=== PATIENT | female | born 1985 | race Caucasian/White ===

== ENCOUNTER 2017-06-30 07:20 | Inpatient (IN) | payer BC ==
[~2017-06-30 07:20] MED LIST: Buffered Lidocaine 0.9% SYRIN* 5 ML/SYR SYRINGE INTRADERM ONE; Sodium Citrate/Citric Acid* 15 ML UDC PO ONE; ceFOXitin 2 GM IVPREMIX* 2 GM/50 ML BAG IVPB SCH
[2017-06-30] MEDS ORDERED: Famotidine IV* 10 MG/ML 2 ML (20 mg) ONE (08:41)
[2017-06-30] MEDS ORDERED: Ondansetron INJ* 2 MG/ML VIAL ONE (08:41)
[2017-06-30] MEDS ORDERED: OXYTOCIN* 10 UNITS/ML 1 ML VIAL ONE (08:41)
[2017-06-30] MEDS ORDERED: Morphine PF AMP (0.5MG/ML)* 5 MG/10 ML AMP ONE (08:42)
[2017-06-30] MEDS ORDERED: fentaNYL* 50 MCG/ML 2 ML VIAL (100 MCG VIAL) IV PRN (08:51)
[2017-06-30] MEDS ORDERED: fentaNYL* 50 MCG/ML 2 ML VIAL (100 MCG VIAL) ONE ×2 (09:35→09:59)
[2017-06-30] MEDS ORDERED: Sodium Bicarbonate 8.4% SYR* 10 ML SYRINGE ONE (09:35)
[2017-06-30] MEDS ORDERED: KETAMINE HCL* 50 MG/ML 10 ML VIAL ONE (09:36)
[2017-06-30] MEDS ORDERED: Carboprost Tromethamine* 250 MCG INJ ONE (09:49)
[2017-06-30] MEDS ORDERED: Lidocaine 2% PF * 5 ML VIAL ONE (10:12)
[2017-06-30] MEDS ORDERED: Ketorolac INJ* 30 MG/ML 1 ML VIAL ONE (10:12)
[2017-06-30] MEDS ORDERED: Propofol* 10 MG/ML 20 ML BTL IV PUSH ONE (10:12)
[2017-06-30] MEDS ORDERED: diPHENhydraMINE IV* 50 MG/ML 1 ml VIAL (BENADRYL) ONE (10:12)
[2017-06-30] MEDS ORDERED: Witch Hazel PAD* JAR TOPICAL PRN (10:24)
[2017-06-30] MEDS ORDERED: Acetaminophen TAB* 325 MG PO PRN (10:24)
[2017-06-30] MEDS ORDERED: Zolpidem TAB* 5 MG PO PRN (10:24)
[2017-06-30] MEDS ORDERED: Dibucaine 1% 28.35 GM TUBE PR PRN (10:24)
[2017-06-30] MEDS ORDERED: Glycerin ADULT SUPP PR PRN (10:24)
[2017-06-30] MEDS ORDERED: Misoprostol TAB* 200 MCG PR ONE (10:29)
[2017-06-30] MEDS ORDERED: Carboprost Tromethamine* 250 MCG INJ IM ONE (10:29)
[2017-06-30] MEDS ORDERED: Scopolamine 1.5 mg* PATCH TRANSDERM PRN (10:34)
[2017-06-30] MEDS ORDERED: Scopolamine PATCH Remove* 1 NOTE MISC PATCH OFF PRN (10:34)
[2017-06-30] MEDS ORDERED: PROCHLORPERAZINE INJ 5 MG/ML 2 ML VIAL IV PRN (10:34)
[2017-06-30] MEDS ORDERED: Naloxone* 0.4 MG/ML 1 ML VIAL IV PRN (10:34)
[2017-06-30] MEDS ORDERED: oxyCODONE/Acetamin 5/325 MG* TAB PO PRN ×2 (10:34)
[2017-06-30] MEDS ORDERED: oxyCODONE TAB* 5 MG TAB PO PRN (10:34)
[2017-06-30] MEDS ORDERED: DiMENhydriNATE IV* 50 MG/ML VIAL IV PUSH PRN (10:34)
[2017-06-30] MEDS ORDERED: Ondansetron INJ* 2 MG/ML VIAL IV PRN (10:34)
[2017-06-30] MEDS ORDERED: Nalbuphine* 20 MG/ML 1 ML VIAL IV PRN ×2 (10:34)
[2017-06-30] MEDS ORDERED: Oxytocin in LR* 20 UNITS/1,000 ML BAG IVPB SCH (11:00)
[2017-06-30] MEDS: Simethicone TAB* 80 MG TAB.CHEW PO SCH ×3 (12:50→21:24)
[2017-06-30] MEDS: Acetaminophen TAB* 325 MG PO SCH ×3 (12:54→21:24)
[2017-06-30] MEDS: diPHENhydraMINE IV* 50 MG/ML 1 ml VIAL (BENADRYL) IV PRN ×2 (13:46→17:16)
[2017-06-30] MEDS: Docusate CAP* 100 MG PO SCH ×2 (14:35→21:24)
[2017-06-30] MEDS: Ketorolac INJ* 30 MG/ML 1 ML VIAL IV SCH ×2 (16:01→22:30)
[2017-07-01] MEDS: Acetaminophen TAB* 325 MG PO SCH (01:58)
--- NOTE | 2017-07-01 03:30 | OP ---
DATE OF OPERATION: 06/30/17 - ROOM #[id number] DATE OF : 83 SURGEON: Chase Antonio MD COMMERCIAL DECORATOR: Dinora Bourne CM ANESTHESIOLOGIST: Dr. Glaser ANESTHESIA: Spinal with sedation. PRE-OP DIAGNOSIS: Twins, vertex breech at term, desires elective section. POST-OP DIAGNOSES: Twins, vertex breech at term, desires elective section plus placenta accreta. OPERATIVE PROCEDURE: Low transverse section. ESTIMATED BLOOD LOSS: 800 cc. SPECIMEN: Includes placenta A which showed signs of accreta in the uterus, and placenta B which had a normal appearance. FINDINGS: At the time of , she had a viable male, Apgars 9 and 9, A was weight 6 pounds 12 ounces. Baby B was a viable male, Apgars 9 and 9, weight was 7 pounds 8 ounces and there was a 3 x 3 cm cotyledon densely adherent to the uterus on the posterior wall. Uterus, tubes, and ovaries otherwise appeared normal. DESCRIPTION OF PROCEDURE: The patient identified and procedure identified as a low transverse section. The patient was taken to the operating room, prepped and draped in the usual fashion. In the left lateral recumbent position under spinal anesthesia, a Pfannenstiel incision was made in the abdomen, carried down through fat, fascia, and peritoneum. A transverse incision was made in the low uterine segment and extended laterally using blunt dissection. The first baby was delivered in the vertex position without difficulty. Cord was doubly clamped and cut and the infant was handed to the waiting spindle repairer. The second baby was grasped by both feet, water was broken with clear fluid and baby B was delivered by the breech extraction method without any difficulty. Cord was doubly clamped and cut and the infant was handed to the waiting spindle repairer. Cord bloods were obtained. Initially, baby A delivered mostly spontaneously, but with manually for baby B and with the small portion that was adherent on baby A's placenta. The uterus was wiped out with a wet lap sponge. During this process, it was noted that there was a small cotyledon that was densely adherent, it would not separate from the uterine body. This was on the posterior wall. It was inspected on the back side and found to be not through, but would not separate even with use of 4x4s and this area was bleeding a bit briskly initially and was oversewn using 0 Polysorb [id number] simple sutures above and below this area with better hemostasis. Uterotonics were given along with Pitocin along with Cytotec and Hemabate in order to get the uterus to contract substantially and to decrease the bleeding. Uterine cavity was then closed using 0 Polysorb in a running fashion. A second layer was used to imbricate the first layer. Good hemostasis was verified. The uterus was placed back in the abdominal cavity. The gutter was wiped out with wet lap sponge. Good hemostasis was verified. The peritoneum was then closed using 3-0 Polysorb in a running fashion. Good hemostasis achieved in the subrectus layers. The fascia was closed using 0 Polysorb in a running fashion. Good hemostasis achieved in the subcu. Copious irrigation was utilized and suctioned out and the skin was closed with 4-0 Monocryl in a subcuticular fashion. All sponge and instrument counts were correct and the patient returned to the recovery room in stable condition. [id number]/[facility] #: [id number] SARAH
[2017-07-01] MEDS: Ketorolac INJ* 30 MG/ML 1 ML VIAL IV SCH ×2 (04:39→10:39)
[2017-07-01] MEDS: oxyCODONE/Acetamin 5/325 MG* TAB PO PRN ×4 (06:17→21:08)
[2017-07-01 08:32] LABS: Hematocrit 27 % (35-47); Hemoglobin 9.2 g/dl (12.0-16.0); Mean Corpuscular HGB Conc 34 g/dl (31-36); Mean Corpuscular Hemoglobin 29 pg (27-31); Mean Corpuscular Volume 85 fL (80-97); Mean Platelet Volume 10 um3 (7.4-10.4); Red Blood Count 3.21 10^6/ul (4.0-5.4); Red Cell Distribution Width 14 % (10.5-15); White Blood Count 11.8 10^3/ul (3.5-10.8)
[2017-07-01] MEDS: Ferrous Gluconate TAB* 324 MG TAB PO SCH ×2 (10:14→21:08)
[2017-07-01] MEDS: Docusate CAP* 100 MG PO SCH ×3 (10:14→21:08)
[2017-07-01] MEDS: Simethicone TAB* 80 MG TAB.CHEW PO SCH ×4 (10:14→21:08)
[2017-07-01] MEDS: Ibuprofen TAB* 600 MG PO PRN (17:37)
--- NOTE | 2017-07-01 20:07 | PTEDU ---
Patient Name: SUSANA LAO SAMI LAOYN selected video: Never Ever Shake a Baby to view on 07/01/2017 at 8:07:00 PM from [facility] [place] [id number]
[2017-07-02] MEDS: Ibuprofen TAB* 600 MG PO PRN ×4 (00:52→20:07)
[2017-07-02] MEDS: oxyCODONE/Acetamin 5/325 MG* TAB PO PRN ×5 (03:07→21:01)
[2017-07-02] MEDS: Ferrous Gluconate TAB* 324 MG TAB PO SCH ×2 (09:22→20:07)
[2017-07-02] MEDS: Simethicone TAB* 80 MG TAB.CHEW PO SCH ×4 (09:22→20:07)
[2017-07-02] MEDS: Docusate CAP* 100 MG PO SCH ×3 (09:22→20:07)
[2017-07-02 21:28] VITALS: BP 130/79
[2017-07-03] MEDS: Ibuprofen TAB* 600 MG PO PRN ×2 (02:22→08:11)
[2017-07-03] MEDS: oxyCODONE/Acetamin 5/325 MG* TAB PO PRN ×2 (02:22→08:10)
[2017-07-03] MEDS: Ferrous Gluconate TAB* 324 MG TAB PO SCH (09:11)
[2017-07-03] MEDS: Docusate CAP* 100 MG PO SCH (09:11)
[2017-07-03] MEDS: Simethicone TAB* 80 MG TAB.CHEW PO SCH (09:11)
== END 2017-07-03 12:24 | disposition home or self-care (01) | DRG 540 ==
LOC: MCHOB 07:20
PROVIDERS: ADMIT Obstetrics & Gynecology; ATTEND Obstetrics & Gynecology
PROC: 4A1HXCZ Monitoring of Products of Conception, Cardiac Rate, External Approach (ICD-10-PCS; 2017-06-30)
PROC: 10D00Z1 Extraction of Products of Conception, Low, Open Approach (ICD-10-PCS; principal; 2017-06-30 09:30)
DX: O32.1XX2 Maternal care for breech presentation, fetus 2 (principal); O30.043 Twin pregnancy, dichorionic/diamniotic, third trimester; D64.9 Anemia, unspecified; Z3A.38 38 weeks gestation of pregnancy; Z37.0 Single live birth; O99.824 Streptococcus B carrier state complicating childbirth; O99.02 Anemia complicating childbirth; O90.81 Anemia of the puerperium; O43.213 Placenta accreta, third trimester; O75.89 Other specified complications of labor and delivery
CPT/HCPCS: 36415; 85025; 88307; A9270-GY; J0694; J1200; J1885; J2405; J2590; J2704; J3010